=== PATIENT | male | born 1965 | race African-American/Black ===

== ENCOUNTER 2018-04-11 04:10 | Emergency (ER) | payer BC, OTHER ==
[~2018-04-11] VITALS: Ht 188 cm; Wt 104.3 kg
--- NOTE | 2018-04-11 04:53 | NUR ---
Dr. Adams at bedside for MSE.
[2018-04-11] MEDS ORDERED: OXYCODONE/APAP 5-325 MG TABLET PO ONE (05:15)
[2018-04-11] MEDS ORDERED: OXYCODONE/APAP 5-325 MG TABLET ONE (05:19)
--- NOTE | 2018-04-11 05:47 | NUR ---
Pt out of ER for CT.
--- NOTE | 2018-04-11 05:57 | NUR ---
Pt back to ER from CT.
--- NOTE | 2018-04-11 06:59 | NUR ---
Report given to Fawad rosenberg.
--- NOTE | 2018-04-11 07:40 | NUR ---
PT WAS D/C'd TO HOME AFTER ER MD EVALUATION. D/C INSTRUCTIONS GIVEN TO THE PT.
[2018-04-11 07:48] VITALS: BP 145/88
== END 2018-04-11 07:49 | disposition home or self-care (01) ==
LOC: ER 04:13
DX: F07.81 Postconcussional syndrome (principal); G89.29 Other chronic pain; M54.5 Low back pain; I10 Essential (primary) hypertension; E11.9 Type 2 diabetes mellitus without complications; V49.9XXA Car occupant (driver) (passenger) injured in unspecified traffic accident, initial encounter; Y93.89 Activity, other specified; Y92.410 Unspecified street and highway as the place of occurrence of the external cause; Y99.8 Other external cause status
CPT/HCPCS: 72131; A4663